=== PATIENT | male | born 1955 | race Caucasian/White ===

== ENCOUNTER 2017-07-10 00:53 | Emergency (ER) | payer BC ==
[2017-07-10] MEDS ORDERED: Ketorolac 30 MG/ML SDV IM ONE (01:44)
--- NOTE | 2017-07-10 01:49 | EDM.PDOC ---
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 It's gotten a little bit worse over the time, he estimates at about 75% of the time he is in pain. When the pain gets worse it can feel like something is rubbing inside the muscle on the eye and it makes him walk stiffly or else limp. It is associated with a feeling of his skin being cold. He took 2 ibuprofen tablets night metastases seem to help a little bit, this is a first-time is taken pain medication. Most the time he just manages to work his way through pain and hasn't missed any of his work because of it. No history of recent injury or illness Last night and tonight again it's been quite annoying and he became awake or waking him up. However during the day earlier today a really wasn't bothering him at all. Sometimes quite sharp. History of fall 8 years ago resulting in cervical spine injury with numbness of his entire right side which slowly improved. He was told he had compression of a couple of disks and although that over the years she's had to have a a few cervical spine injections he's never had to have surgery. No history of blood clots No cough difficulty breathing or chest pain Right Upper Leg Pain Score (Numeric/FACES): 8 - Related Data Allergies Allergy/AdvReac Type Severity Reaction Status Date / Time No Known Allergies Allergy Verified 07/10/17 01:08 Home Meds: Home Meds traMADol [Ultram] 50 mg PO Q4H PRN #15 tab 07/10/17 [Rx] Past Medical History HEENT History: Reports: Impaired Vision - Past Surgical History Other Musculoskeletal Surgeries/Procedures:: L FOOT FX Social & Family History - Tobacco Use Smoking Status *Q: Unknown Ever Smoked Review of Systems - Review of Systems Review Of Systems: See Below Constitutional: Reports: No Symptoms Eyes: Reports: No Symptoms Ears: Reports: No Symptoms Nose: Reports: No Symptoms Mouth/Throat: Reports: No Symptoms Respiratory: Reports: No Symptoms Cardiovascular: Reports: No Symptoms GI/Abdominal: Reports: No Symptoms Musculoskeletal: Reports: Leg Pain (lateral aspect right thigh), Muscle Pain. Denies: Muscle Stiffness Skin: Reports: Other (feels a bit cold to touch in the lateral right thigh). Denies: Rash, Erythema, Wound, Change in Color Neurological: Reports: Numbness (lateral right thigh), Difficulty Walking (mild limp at times). Denies: Pre-Existing Deficit, Seizure, Syncope, Tingling, Tremors Psychiatric: Reports: No Symptoms ED EXAM, GENERAL - Physical Exam Exam: See Below Exam Limited By: No Limitations General Appearance: Alert, Mild Distress, Other (minimal elevation blood pressure otherwise vital signs normal) Head: Atraumatic, Normocephalic Neck: Normal Inspection, Non-Tender, Full Range of Motion Respiratory/Chest: No Respiratory Distress, Lungs Clear, No Accessory Muscle Use Cardiovascular: Normal Peripheral Pulses GI/Abdominal: Non-Tender Back Exam: Normal Inspection, Full Range of Motion. No: CVA Tenderness (R), CVA Tenderness (L), Decreased Range of Motion, Muscle Spasm, Paraspinal Tenderness Extremities: Normal Inspection, Normal Range of Motion, Normal Capillary Refill , Leg Pain. No: Pedal Edema, Increased Warmth Neurological: Alert, Oriented, No Motor/Sensory Deficits Psychiatric: Normal Mood Skin Exam: Warm, Dry, Intact, Normal Color, No Rash Lymphatic: No Adenopathy Course - Vital Signs Last Recorded V/S: Last Vital Signs Temp 36.2 C 07/10/17 01:05 Pulse 67 07/10/17 01:05 Resp 16 07/10/17 01:05 BP 131/94 H 07/10/17 01:05 Pulse Ox 97 07/10/17 01:05 - Orders/Labs/Meds Labs: Laboratory Tests 07/10/17 07/10/17 Range/Units 01:50 01:50 WBC 9.8 (4.5-11.0) K/uL RBC 5.41 (4.30-5.90) M/uL Hgb 16.4 H (12.0-15.0) g/dL Hct 46.3 (40.0-54.0) % MCV 86 (80-98) fL MCH 30 (27-31) pg MCHC 35 (32-36) % Plt Count 215 (150-400) K/uL D-Dimer, Quantitative < 100 (0.0-400.0) ng/mL Meds: Medications Discontinued Medications Generic Name Dose Route Start Last Admin Trade Name Rowan PRN Reason Stop Dose Admin Ketorolac Tromethamine 30 mg 07/10/17 01:44 07/10/17 01:49 Toradol IM 07/10/17 01:45 30 mg ONETIME ONE Administration - Re-Assessments/Exams Free Text/Narrative Re-Assessment/Exam: 07/10/17 01:52 61-year-old male with gradual onset of right lateral thigh pain a little over a month ago. Differential diagnosis would include muscle spasm, peripheral neuropathy, altered sensation, radiculopathy among others For his discomfort Toradol 30 mg IM 07/10/17 02:42 CBC and d-dimer within normal limits Differential diagnosis includes neuropathy versus muscle strain Will treat with analgesics Follow-up with primary care Departure - Departure Time of Disposition: 02:46 Disposition: Home, Self-Care 01 Condition: Good Clinical Impression: Right thigh pain - Discharge Information Instructions: Paresthesia Referrals: PCP,None [Primary Care Provider] - Forms: ED Department Discharge Additional Instructions: It is not quite certain what is causing you are leg pain. The numbness and cold feeling would suggest something like a pinched nerve but the tenderness to touchon the leg itself would suggest but the problem is in the muscle such as a strain muscle or inflammation. continue ibuprofen or the prescription pain medication as needed Make an appointment with your primary care or clinic for further assessment
== END 2017-07-10 02:54 | disposition home or self-care (01) ==
LOC: JP.ED 00:53
DX: M79.651 Pain in right thigh (principal)
CPT/HCPCS: 36415; 85027; 85379; 96374; 99284; J1885